=== PATIENT | male | born 1965 | race Caucasian/White ===

== ENCOUNTER 2022-01-16 21:09 | Inpatient (IN) | payer OTHER ==
[2022-01-16 23:30] VITALS: BMI 37.2
[2022-01-16] MEDS ORDERED: Promethazine HCl 25 MG/ML VIAL IM PRN (23:43)
[2022-01-16] MEDS ORDERED: Ondansetron PF 4 MG/2 ML Vial IVP PRN (23:43)
[2022-01-16] MEDS ORDERED: hydrALAZINE 20 MG/ML VIAL SLOW IVP PRN (23:43)
[2022-01-16] MEDS ORDERED: Morphine 2 MG/ML VIAL SLOW IVP PRN (23:43)
[2022-01-16] MEDS ORDERED: Sodium Chloride 0.9% 1,000 ML IV SCH (23:45)
[2022-01-16] MEDS ORDERED: Cyclobenzaprine 10 MG TAB PO PRN (23:46)
[2022-01-16] MEDS ORDERED: traMADol HCl 50 MG TAB PO PRN (23:46)
[2022-01-16] MEDS ORDERED: traMADol HCl 50 MG TAB PO SCH (23:59)
[2022-01-17] MEDS: Acetaminophen 500 MG TAB PO SCH ×5 (00:15→23:34)
[2022-01-17] MEDS ORDERED: Losartan 25 MG TAB PO SCH ×2 (00:30→21:00)
[2022-01-17] MEDS ORDERED: Rosuvastatin 20 MG TAB PO SCH ×2 (00:30→21:00)
[2022-01-17] MEDS ORDERED: Senokot S 8.6-50 MG TAB PO SCH (00:30)
[2022-01-17] MEDS: Ibuprofen 200 MG TAB PO SCH ×3 (05:49→21:12)
[2022-01-17 06:02] LABS: #Eosinphils 0.2 thou/uL (0.0-0.7); #Lymphocytes 2.2 thou/uL (1.20-3.40); #Monocytes 0.9 thou/uL (0.11-0.59); #Neutrophils 6.1 thou/uL (1.40-6.50); %Basophils 0.3 % (0.0-1.0); %Eosinophils 2.3 % (0.0-10.0); %Lymphocytes 23.2 % (21.0-51.0); %Monocytes 9.6 % (0.0-10.0); %Neutrophils 64.6 % (42.0-75.0); Hemoglobin 13.9 g/dL (14.0-18.0); Mean Corpuscular HGB CONC 33.8 g/dL (32.0-36.0); Mean Corpuscular Hemoglobin 29.6 pg (27.0-31.0); Mean Corpuscular Volume 87.6 fL (78.0-98.0); Mean Platelet Volume 6.3 fL (7.4-10.4); Platelet Count 228 thou/uL (130-400); RBC Distribution Width 12.9 % (11.5-14.5); Red Blood Cell (RBC) Count 4.71 mill/uL (4.70-6.10); White Blood Cell (WBC) Count 9.4 thou/uL (4.8-10.8)
[2022-01-17] MEDS: Senokot S 8.6-50 MG TAB PO SCH ×2 (08:42→21:12)
[2022-01-17] MEDS: Floranex 1 GM Packet PO SCH (08:42)
[2022-01-17] MEDS: Polyethylene Glycol 3350 17 GM Packet PO SCH (08:42)
[2022-01-17] MEDS: Famotidine 40 MG/4 ML VIAL SLOW IVP SCH ×2 (09:00→21:11)
[2022-01-17] MEDS: traMADol HCl 50 MG TAB PO SCH (23:34)
[2022-01-18] MEDS: Acetaminophen 500 MG TAB PO SCH ×2 (05:49→13:01)
[2022-01-18] MEDS: Ibuprofen 200 MG TAB PO SCH (05:50)
[2022-01-18] MEDS: traMADol HCl 50 MG TAB PO SCH ×2 (05:50→13:01)
[2022-01-18 08:00] VITALS: TEMP 97.9
[2022-01-18] MEDS ORDERED: Enoxaparin Sodium 40 MG/0.4 ML SYRINGE SC SCH (09:00)
[2022-01-18] MEDS: Polyethylene Glycol 3350 17 GM Packet PO SCH (10:09)
[2022-01-18] MEDS: Senokot S 8.6-50 MG TAB PO SCH (11:16)
[2022-01-18] MEDS: Famotidine 40 MG/4 ML VIAL SLOW IVP SCH (11:30)
[2022-01-18] MEDS: Floranex 1 GM Packet PO SCH (11:30)
[2022-01-18 12:17] VITALS: BP 117/73
== END 2022-01-18 13:47 | disposition home or self-care (01) | DRG 536 ==
LOC: SURG B 21:09
PROVIDERS: ADMIT Surgery; ATTEND Surgery
DX: S32.475A Nondisplaced fracture of medial wall of left acetabulum, initial encounter for closed fracture (principal); Z20.822 Contact with and (suspected) exposure to COVID-19; E78.5 Hyperlipidemia, unspecified; I10 Essential (primary) hypertension; V80.010A Animal-rider injured by fall from or being thrown from horse in noncollision accident, initial encounter; Z79.899 Other long term (current) drug therapy
CPT/HCPCS: 36415; 85025; J1650; J8499